=== PATIENT | female | born 1985 | race Two or more races ===

== ENCOUNTER 2018-04-14 23:42 | Emergency (ER) | payer BC ==
[~2018-04-14] VITALS: Ht 165.1 cm; Wt 71.7 kg
[2018-04-15] MEDS ORDERED: PEPCID40 MG PO (01:36)
[2018-04-15] MEDS ORDERED: ZYRTEC10 M2 PO (01:36)
== END 2018-04-15 01:43 | disposition home or self-care (01) ==
LOC: ER 23:42
DX: L50.0 Allergic urticaria (principal)

== ENCOUNTER 2018-05-14 00:35 | Inpatient (IN) | payer BC ==
[~2018-05-14] VITALS: Ht 165.1 cm; Wt 3.2 kg
[~2018-05-14 00:35] MED LIST: PEPCID40 MG PO; ZYRTEC10 M2 PO
[2018-05-14] MEDS ORDERED: VALTREX1000 MG PO (02:00)
[2018-05-14] MEDS ORDERED: PRENATAL TABLE1 EAC1 PO (02:00)
== END 2018-05-17 18:20 | disposition home or self-care (01) | DRG 766 ==
LOC: LDR 00:35 → O/R 08:32 → OB/GYN 11:37
PROVIDERS: Obstetrics & Gynecology
PROC: 3E033VJ Introduction of Other Hormone into Peripheral Vein, Percutaneous Approach (ICD-10-PCS; 2018-05-14)
PROC: 4A1HXCZ Monitoring of Products of Conception, Cardiac Rate, External Approach (ICD-10-PCS; 2018-05-14)
PROC: 10D00Z1 Extraction of Products of Conception, Low, Open Approach (ICD-10-PCS; principal; 2018-05-14 07:00)
DX: O61.0 Failed medical induction of labor (principal); O99.824 Streptococcus B carrier state complicating childbirth; Z3A.39 39 weeks gestation of pregnancy; Z37.0 Single live birth